=== PATIENT | male | born 1950 | race Caucasian/White ===

== ENCOUNTER → 2017-02-18 | Outpatient (CLI) | payer OTHER ==
--- NOTE | ~2017-02-18 | EXE ---
[facility] [address] [place] [address] STRESS ECHOCARDIOGRAM Name: DICKAMIRAYVROSE CORONADO Room #: REG [facility]#: [id number] Admission: 02/18/17 Attend Phys: Atul Valerio MD Discharge: Date of : 48 Date of Service: 02/18/17 1454 Report #: [id number] THIS REPORT FOR: //name// APPROVED REPORT Study performed: 02/18/2017 11:59:11 EXAM: Comprehensive 2D, Doppler, and color-flow Echocardiogram Patient Location: Out-Patient Status: routine Other Information Study Quality: Adequate Indications Atrial Fibrillation 2D Dimensions RVDd: 37.90 mm LVEF(%): 63.19 (>50%) IVSd: 11.95 (7-11mm) LVOT Diam: 21.65 (18-24mm) LVDd: 48.39 mm PWd: 11.72 (7-11mm) Ascending Ao: 37.34 (22-36mm) LVDs: 31.79 (25-40mm) Aortic Root: 34.13 mm Brandt's LVEF: 63.19 % Volumes Left Atrial Volume (Systole) Single Plane 4CH: 70.31 mL Single Plane 2CH: 81.68 mL LA ESV Index: 36.00 mL/m2 Aortic Valve AoV Peak Kavin.: 1.40 m/s AO Peak Gr.: 7.81 mmHg LVOT Max P.15 mmHg LVOT Max V: 1.13 m/s HILDA Vmax: 2.99 cm2 Mitral Valve E/A Ratio: 1.3 MV Decel. Time: 209.80 ms MV E Max Kavin.: 1.12 m/s MV A Kavin.: 0.83 m/s MV PHT: 60.84 ms IVRT: 69.20 ms [facility] [address] [place] [address] STRESS ECHOCARDIOGRAM Name: AMIRA JENNINGS OSCEOLA MILLS Room #: REG [facility]#: [id number] Admission: 02/18/17 Attend Phys: Atul Valerio MD Discharge: Date of : 48 Date of Service: 02/18/17 1454 Report #: [id number] Pulmonary Valve PV Peak Kavin.: 1.02 m/s PV Peak Gr.: 4.13 mmHg Pulmonary Vein P Vein S: 0.64 m/s P Vein A: 0.33 m/s P Vein D: 0.72 m/s P Vein A Dur.: 92.3 msec P Vein S/D Ratio: 0.89 Tricuspid Valve TR Peak Kavin.: 2.91 m/s RAP Estimate: 5.00 mmHg TR Peak Gr.: 33.87 mmHg PA Pressure: 39.00 mmHg Left Ventricle The left ventricle is normal size. There is normal LV segmental wall motion. Mild concentric left ventricular hypertrophy. Left ventricular systolic function is normal. LVEF is 55-60%. Grade II - pseudonormal filling dynamics. Right Ventricle The right ventricle is normal size. The right ventricular systolic function is normal. Atria Left atrium is mildly dilated. The right atrium size is normal. Aortic Valve The aortic valve is normal in structure. Mild to moderate aortic regurgitation. There is no aortic valvular stenosis. Mitral Valve Mitral valve leaflets are thickened and calcified. Moderate mitral regurgitation. No evidence of mitral valve stenosis. Tricuspid Valve The tricuspid valve is normal in structure. There is mild tricuspid regurgitation. The right atrial pressure is estimated at 5 mmHg. There is mild to moderate pulmonary hypertension with an estimated PAP of 40mmHg. Pulmonic Valve The pulmonary valve is normal in structure. Trace pulmonic regurgitation. [facility] [address] [place] [address] STRESS ECHOCARDIOGRAM Name: DICKAMIRA OSCEOLA MILLS Room #: REG [facility]#: [id number] Admission: 02/18/17 Attend Phys: Atul Valerio MD Discharge: Date of : 48 Date of Service: 02/18/17 1454 Report #: [id number] Great Vessels The aortic root is normal in size. The ascending aorta is normal in size. IVC is normal in size and collapses >50% with inspiration. Pericardium There is no pericardial effusion. <Conclusion> The left ventricle is normal size. Mild concentric left ventricular hypertrophy. Left ventricular systolic function is normal. The right ventricle is normal size. Left atrium is mildly dilated. The right atrium size is normal. Mild to moderate aortic regurgitation. Mild to moderate mitral regurgitation. There is mild tricuspid regurgitation. The right atrial pressure is estimated at 5 mmHg. There is mild to moderate pulmonary hypertension with an estimated PAP of 40mmHg. <ELECTRONICALLY SIGNED> By: Atul Valerio MD 02/18/17 1454 1454 1454 Atul Valerio MD /INF
--- NOTE | ~2017-02-18 | EXE ---
[facility] [employer] [place] [address] STRESS ECHOCARDIOGRAM Name: AMIRA JENNINGS Room #: REG CL [facility]#: [id number] Admission: 02/18/17 Attend Phys: Atul Valerio MD Discharge: Date of : 48 Date of Service: 02/18/17 1458 Report #: [id number] THIS REPORT FOR: //name// APPROVED REPORT Exam: Stress Echocardiogram Indication: Atrial Fibrillation Patient Location: Out-Patient Stress Nurse: Jessica Castro RN Status: routine HR: 66 bpm Medical History Medical History: Atrial Fibrillation Procedure The patient underwent an Exercise Stress Test using the Dario Protocol. Blood pressure, heart rate, and EKG were monitored. An Echocardiogram was performed by management technician in four stages in quad fashion. At peak stress, four selected images were obtained and placed side by side with resting images for comparison. Stress Test Details Stress Test: Exercise stress testing was performed using a Dario protocol. HR Resting HR: 66 bpm Max Heart Rate (APMHR): 153 bpm Max HR Achieved: 137 bpm Target HR (85% APMHR): 130 bpm % of APMHR: 89 Recovery HR: 85 bpm HR response to stress: Slow increase due to medications BP Resting BP: 176/102 mmHg Max BP: 198/88 mmHg Recovery BP: 160/80 mmHg ECG Resting ECG: Sinus Rhythm, nonspecific ST-T abnormalities Stress ECG: Sinus Rhythm, nonspecific ST-T abnormalities ST Change: Non-ischemic Clinical Reason for Termination: Moderate fatigue [facility] [address] [place] [address] STRESS ECHOCARDIOGRAM Name: AMIRA JENNINGS Room #: REG [facility]#: [id number] Admission: 02/18/17 Attend Phys: Atul Valerio MD Discharge: Date of : 48 Date of Service: 02/18/17 1458 Report #: [id number] Stress Symptoms: Dyspnea Exercise duration: 11 min 14 sec Exercise capacity: 13.7 METs Pre-Stress Echo The resting Echocardiogram showed normal left ventricular contractility with an estimated Ejection Fraction of about 55-60%. Post-Stress Echo The stress Echocardiogram showed normal left ventricular contractility with an estimated Ejection Fraction of about 65-70%. Conclusion Clinical Response: Non-ischemic Exercise Capacity: Superior Stress ECG Response: Non-ischemic Stress Echo Images: Non-ischemic No clinical, EKG or echocardiographic evidence for ischemia. Other Information Study Quality: Adequate Technically limited study due to very difficult post pictures due to lung artifact. <Conclusion> No clinical, EKG or echocardiographic evidence for ischemia. <ELECTRONICALLY SIGNED> By: Atul Valerio MD 02/18/17 1458 1458 1458 Atul Valerio MD /INF
== END ==
LOC: CV 08:38
DX: I48.91 Unspecified atrial fibrillation (principal)

== ENCOUNTER → 2018-03-07 | Outpatient (CLI) | payer OTHER ==
--- NOTE | ~2018-03-07 | 2DMMODE ---
[facility] [place] [address] 2 D/M-MODE ECHOCARDIOGRAM Name: DICKAMIRA Room #: REG [facility]#: [id number] Admission: 03/07/18 Attend Phys: Atul Valerio MD Discharge: Date of : 48 Date of Service: 03/07/18 1522 Report #: [id number] THIS REPORT FOR: //name// APPROVED REPORT Study performed: 03/07/2018 13:44:28 EXAM: Comprehensive 2D, Doppler, and color-flow Echocardiogram Patient Location: Out-Patient Status: routine BSA: 2.33 HR: 63 bpm BP: 185/109 mmHg Rhythm: NSR Other Information Study Quality: Adequate Indications Afib 2D Dimensions RVDd: 34.42 mm LVEF(%): 72.76 (>50%) IVSd: 10.95 (7-11mm) LVOT Diam: 20.74 (18-24mm) LVDd: 51.92 mm PWd: 13.17 (7-11mm) Ascending Ao: 29.93 (22-36mm) LVDs: 30.05 (25-40mm) Aortic Root: 31.45 mm Brandt's LVEF: 72.76 % Volumes Left Atrial Volume (Systole) Single Plane 4CH: 63.51 mL Single Plane 2CH: 93.38 mL Aortic Valve AoV Peak Kavin.: 1.38 m/s AO Peak Gr.: 7.57 mmHg LVOT Max P.78 mmHg LVOT Max V: 0.97 m/s HILDA Vmax: 2.39 cm2 Mitral Valve E/A Ratio: 1.1 MV Decel. Time: 274.26 ms MV E Max Kavin.: 0.84 m/s [facility] [address] [place] [address] 2 D/M-MODE ECHOCARDIOGRAM Name: AMIRA JENNINGS Room #: [facility]#: [id number] Admission: 03/07/18 Attend Phys: Atul Valerio MD Discharge: Date of : 48 Date of Service: 03/07/18 1522 Report #: [id number] MV A Kavin.: 0.79 m/s MV PHT: 79.54 ms IVRT: 106.11 ms Pulmonary Valve PV Peak Kavin.: 1.11 m/s PV Peak Gr.: 4.89 mmHg Tricuspid Valve TR Peak Kavin.: 2.74 m/s RAP Estimate: 5.00 mmHg TR Peak Gr.: 30.09 mmHg PA Pressure: 35.00 mmHg Left Ventricle The left ventricle is normal size. There is normal LV segmental wall motion. Borderline concentric left ventricular hypertrophy. Left ventricular systolic function is normal. LVEF is 55-60%. Right Ventricle The right ventricle is normal size. The right ventricular systolic function is normal. Atria Left atrium is mildly dilated. The right atrium size is normal. Aortic Valve The Aortic valve is minimally sclerotic. Mild to moderate aortic regurgitation. There is no aortic valvular stenosis. Mitral Valve Mitral valve leaflets are mildly thickened. Mild to moderate mitral regurgitation. No evidence of mitral valve stenosis. Tricuspid Valve The tricuspid valve is normal in structure. Mild tricuspid regurgitation. Estimated PAP is 35mmHg. Pulmonic Valve The pulmonary valve is normal in structure. Trace pulmonic regurgitation. Great Vessels The aortic root is normal in size. The ascending aorta is normal in size. IVC is normal in size and collapses >50% with inspiration. [facility] [address] [place] [address] 2 D/M-MODE ECHOCARDIOGRAM Name: AMIRA JENNINGS Room #: REG [facility]#: [id number] Admission: 03/07/18 Attend Phys: Atul Valerio MD Discharge: Date of : 48 Date of Service: 03/07/18 152 Report #: [id number] Pericardium There is no pericardial effusion. <Conclusion> The left ventricle is normal size. Left ventricular systolic function is normal. The right ventricle is normal size. Left atrium is mildly dilated. Mild to moderate aortic regurgitation. Mild to moderate mitral regurgitation. Mild tricuspid regurgitation. Estimated PAP is 35mmHg. <ELECTRONICALLY SIGNED> By: Atul Valerio MD 03/07/18 152 21 21 Atul Valerio MD /INF
== END ==
LOC: CV 12:17
DX: I08.3 Combined rheumatic disorders of mitral, aortic and tricuspid valves (principal); I48.91 Unspecified atrial fibrillation

== ENCOUNTER → 2018-03-17 | Outpatient (CLI) | payer OTHER | LOC: CAT 08:30 | DX: Z13.6 Encounter for screening for cardiovascular disorders (principal); E78.00 Pure hypercholesterolemia, unspecified ==

== ENCOUNTER → 2019-03-13 | Outpatient (CLI) | payer OTHER | LOC: NUC 00:38 | DX: I48.91 Unspecified atrial fibrillation (principal); I10 Essential (primary) hypertension; Z79.01 Long term (current) use of anticoagulants; Z79.899 Other long term (current) drug therapy; Z88.8 Allergy status to other drugs, medicaments and biological substances; Z91.018 Allergy to other foods ==

== ENCOUNTER → 2019-04-19 | Outpatient (CLI) | payer OTHER ==
[~2019-04-19] MED LIST: LOPRESSOR50 PO; TAMBOCOR 100 M100 M1 PO; XARELTO20 MG PO
[2019-04-19 07:49] LABS: HEMATOCRIT 44.4 % (42.0-52.0); HEMOGLOBIN 15.3 gm/dL (14.0-18.0); MCHC 34.4 g/dL (28.0-37.0); RBC 4.94 mil/uL (4.50-6.00)
[2019-04-19 08:11] LABS: ALBUMIN 3.6 g/dL (3.4-5.0); CALCIUM 8.9 mg/dL (8.5-10.1); CREATININE 1.1 mg/dL (0.7-1.3); TOTAL BILIRUBIN 0.5 mg/dL (<0.1-1.0); TOTAL PROTEIN 7.5 g/dL (6.4-8.2)
[2019-04-19 08:13] LABS: POTASSIUM 4.6 mmol/L (3.5-5.1)
== END ==
LOC: CAT 07:17
PROVIDERS: Internal Medicine Cardiovascular Disease
DX: I48.91 Unspecified atrial fibrillation (principal); I25.10 Atherosclerotic heart disease of native coronary artery without angina pectoris; M47.814 Spondylosis without myelopathy or radiculopathy, thoracic region

== ENCOUNTER 2019-04-24 06:20 | Observation (INO) | payer OTHER ==
[~2019-04-24] VITALS: Ht 182.9 cm; Wt 117.0 kg
[2019-04-24 06:58] VITALS: BP 144/113
[2019-04-24] MEDS ORDERED: XARELTO20 MG PO (07:04)
[2019-04-24] MEDS ORDERED: LOPRESSOR50 PO (07:04)
[2019-04-24 07:06] LABS: ABSOLUTE NEUTROPHILS 3.2 thou/uL (1.4-8.2); BASOPHILS 0.9 % (0.0-2.0); EOSINOPHILS 4.4 % (0.0-3.0); HEMATOCRIT 44.8 % (42.0-52.0); HEMOGLOBIN 15.4 gm/dL (14.0-18.0); LYMPHOCYTES 34.1 % (24.0-44.0); MCHC 34.4 g/dL (28.0-37.0); MCV 90.3 fL (80.0-100.0); MONOCYTES 8.8 % (1.0-8.0); PLATELET COUNT 180 thou/uL (150-400); POLYS 51.8 % (36.0-66.0); RBC 4.96 mil/uL (4.50-6.00); RDW 12.8 % (10.5-14.5); WBC 6.3 thou/uL (4.0-11.0)
[2019-04-24 07:13] LABS: CALCIUM 9.2 mg/dL (8.5-10.1); CREATININE 1.1 mg/dL (0.7-1.3); POTASSIUM 3.8 mmol/L (3.5-5.1)
[2019-04-24 07:20] LABS: ALBUMIN 3.6 g/dL (3.4-5.0); TOTAL BILIRUBIN 0.6 mg/dL (<0.1-1.0); TOTAL PROTEIN 7.3 g/dL (6.4-8.2)
[2019-04-24 07:29] LABS: APTT 28.4 Seconds (24.5-32.8); INR 1.1; PROTIME 11.1 Seconds (9.3-11.4)
--- NOTE | 2019-04-24 08:07 | EKG ---
[address] [address] ELECTROCARDIOGRAM REPORT Name: AMIRA JENNINGS Room #: 150-4 [facility]#: [id number] Admission: 04/24/19 Attend Phys: Mustapha Rouse MD Discharge: Date of : 48 Report #: [id number] THIS REPORT FOR: //name// [facility] Test Date: 2019-04-24 Test Time: 07:16:34 Pat Name: AMIRA JENNINGS Department: Room: Gender: M Heavy Machinery Operator: Hue COCHRAN : 1950 Requested By: Mustapha Rouse Order Number: [id number] MD: Phong Smith Measurements Intervals [place] Rate: 113 P: [place]: QRS: 23 QRSD: 84 T: 205 QT: 335 QTc: 460 Interpretive Statements Atrial fibrillation Nonspecific ST segment abnormality Compared to ECG 11/23/2006 03:29:41 Sinus rhythm no longer present Electronically Signed On 04-24-2019 8:07:12 CDT by Phong Smith [email or web address] <ELECTRONICALLY SIGNED> By: Phong Smith MD, [facility] 04/24/19 08 5 5 Phong Smith MD, [facility] /EPI
[2019-04-24 12:51] VITALS: BP 138/87
--- NOTE | 2019-04-24 12:55 | NUR ---
RECEIVED FROM HOLDING POST AFIB ABLATION. A X 4, NSR BP STABLE, R GROIN PROCEDURE SITE INTACT WITH DRESSING. NO BRUISING OR HEMATOMA OR BRUIT HEARD PT INSTRUCTED BR X 6 HOURS, UNDERSTOOD. SEE DATA FLOW SHEET FOR FREQUENT VITAL SIGNS AND GROIN CHECKS. STUBBS INTACT, DRAINING QS. WILL CONTINUE TO MONITER AND CARE FOR PT PER PLAN OF CARE
[2019-04-24 14:59] VITALS: BP 138/87
[2019-04-24 16:17] VITALS: BP 138/87; BP 144/87
[2019-04-24 16:18] VITALS: BP 138/87
--- NOTE | 2019-04-24 16:26 | NUR ---
VSS REMAINS NSR , LUNGS CLEAR RA SAT IS 96%, R GROIN EPS SITE WITHOUT HEMATOMA OR BRUIT, BR MAINTAINED. STUBBS WITH CLEAR YELLOW URINE. BR MAINTAINED. WILL CONTINUE TO MONITER AND CARE FOR PT PER PLANOF CARE
[2019-04-24 20:45] VITALS: BP 133/69
--- NOTE | 2019-04-25 04:07 | NUR ---
ASSESSMENT CHARTED. VSS. PT DENIES CP, SOA, DIZZINESS, N/V. R GROIN SITE INTACT NO HEMATOMA NO BRUIT. OFF BEDREST 1999 AD RAY STEADY. VOIDING PER URINAL AFTER DAY SHIFT STUBBS D/C. PT HOPEFUL TO D/C THIS AM. WILL CONTINUE TO MONITOR AND WITH POC.
[2019-04-25 04:45] VITALS: BP 119/70
[2019-04-25 07:23] VITALS: BP 127/72
[2019-04-25] MEDS ORDERED: TAMBOCOR 100 M100 M1 PO (07:58)
--- NOTE | 2019-05-05 14:23 | P ---
[facility] [place] [address] [place] [address] PROCEDURE REPORT Name: AMIRA JENNINGS Room #: 200-I [facility] Jamila AleshaAlesha#: [id number] Admission: 04/24/19 Attend Phys: Mustapha Rouse MD Discharge: 04/25/19 Date of : 48 Report #: [id number] THIS REPORT FOR: //name// CC: Mustapha Jimenezhernandez DATE OF SERVICE: 04/24/2019 PREOPERATIVE DIAGNOSIS: Atrial fibrillation. POSTOPERATIVE DIAGNOSIS: Atrial fibrillation. HISTORY: The patient is a 69-year-old male with history of atrial fibrillation, here for ablation. PROCEDURES PERFORMED: 1. Atrial fibrillation ablation, CPT code 73978. 2. 3D mapping, CPT code 02005. 3. Intracardiac echo, CPT code 76501. 4. Focal ablation with creation of roofline, CPT code 63576. ANESTHESIA: The patient underwent general anesthesia with no anesthesia related complications. DESCRIPTION OF PROCEDURE: The patient underwent informed consent. We discussed the details of the procedure including the risks, which include but not limited to bleeding, vascular damage, cardiac perforation, stroke and AR. He understood these risks and is willing to proceed. The patient was brought to the EP laboratory in a fasting and sedated state, prepped and draped in sterile fashion. I obtained access to the right femoral vein x 3, placing an 8, 7 and 9-Polish short sheath using the modified Seldinger technique. Next, under fluoroscopy, I placed a Decapolar catheter easily in the coronary sinus and an ice catheter in the right atrium, which we used to create a 3D geometry of the left atrium and this was merged with the cardiac CT scan. Next, the patient was systemically heparinized and a transseptal was performed using an SL1 sheath and a [place] needle. This was straightforward and I was able to advance the SL1 to the left atrium and exchanged this for the cryo sheath. Via the cryo sheath, I placed a [employer] Nice Lasso catheter and created a detailed 3D geometry and voltage map of the left atrium. I then started isolating the veins. I performed 2 freezes with the initial balloon, but the balloon deflated likely due to microchip issue. We therefore exchanged to a new cryo balloon and I performed two 4-minute freezes, which did not result in isolation and then I performed a third freeze that was 200 seconds in duration and this third freeze resulted in isolation of the vein within 35 seconds. The third freeze was more of a roof freeze. I then turned my [facility] [address] [place] [address] PROCEDURE REPORT Name: AMIRA JENNINGS [facility] [id number] Admission: 04/24/19 Attend Phys: Mustapha Rouse MD Discharge: 04/25/19 Date of : 48 Report #: [id number] attention to the left inferior pulmonary vein. I performed a 4-minute freeze, which resulted in isolation of the vein in 44 seconds. I performed an additional freeze of 3 minutes duration to create more of a wide circumferential ablation of the veins. I then turned my attention to the right superior pulmonary vein. I performed a 115 second freeze, which resulted in isolation within 40 seconds. I came off due to cold temperatures. I then performed another freeze that was 140 seconds in duration and again came off due to cold temperatures. While isolating the right-sided veins, phrenic nerve pacing was performed and there was never any phrenic nerve compromise. I turned my attention to the right inferior pulmonary vein and this vein isolated within 30 seconds. I performed a single 4-minute freeze. Next, I decided to create a roofline. I performed two 4-minute freezes from the left vein in two 3-minute freezes from the right vein. The patient underwent 200 joule cardioversion with adventist of sinus rhythm and I removed the cryoablation catheter and placed the Lasso catheter back into the left atrium. A detailed 3D voltage map of the left atrium was created, which showed that we had created a wide circumferential ablation of the left atrium as well as posterior roofline with isolation. As such, the procedure was concluded. Using intracardiac ultrasound, I verified there was no pericardial effusion. The patient received systemic protamine and once ACT was within acceptable range, catheters and sheaths were pulled. Hemostasis was obtained. The patient awoke neurologically and hemodynamically intact. No complications and no significant bleeding. CONCLUSIONS: 1. Successful AFib ablation with wide circumferential ablation of the pulmonary veins. 2. Successful creation of a posterior roofline. <ELECTRONICALLY SIGNED> By: Mustapha Rouse MD 05/05/19 1423 1201 [id number] Mustapha Rouse MD /nt
== END 2019-04-25 13:54 | disposition home or self-care (01) ==
LOC: CATH 06:20 → TBA 07:39 → CATH 13:03 → 2N 13:04 → CATH 14:25 → ENTRNSPT 04-25 13:01 → EDTRNSPTSTS 04-25 13:04 → 2N 04-25 13:54
PROVIDERS: ADMIT Internal Medicine Cardiovascular Disease
DX: I48.0 Paroxysmal atrial fibrillation (principal); I10 Essential (primary) hypertension; E78.5 Hyperlipidemia, unspecified; Z91.018 Allergy to other foods; Z88.8 Allergy status to other drugs, medicaments and biological substances; Z79.01 Long term (current) use of anticoagulants; Z79.899 Other long term (current) drug therapy
CPT/HCPCS: 65020; 65040; 70005

== ENCOUNTER → 2020-04-17 | Outpatient (CLI) | payer OTHER | LOC: SJCVC 15:57 | PROVIDERS: ATTEND Internal Medicine Cardiovascular Disease | DX: I48.0 Paroxysmal atrial fibrillation (principal); R00.1 Bradycardia, unspecified; R93.1 Abnormal findings on diagnostic imaging of heart and coronary circulation; I10 Essential (primary) hypertension; E78.00 Pure hypercholesterolemia, unspecified; Z79.899 Other long term (current) drug therapy ==

== ENCOUNTER → 2020-10-24 | Outpatient (CLI) | payer OTHER | LOC: SJCVC 14:00 | PROVIDERS: ATTEND Internal Medicine Cardiovascular Disease | DX: I48.0 Paroxysmal atrial fibrillation (principal); I10 Essential (primary) hypertension; I25.10 Atherosclerotic heart disease of native coronary artery without angina pectoris; E78.00 Pure hypercholesterolemia, unspecified; E78.5 Hyperlipidemia, unspecified; E03.9 Hypothyroidism, unspecified; Z88.5 Allergy status to narcotic agent; Z88.8 Allergy status to other drugs, medicaments and biological substances; Z79.82 Long term (current) use of aspirin; Z79.899 Other long term (current) drug therapy; Z72.89 Other problems related to lifestyle; Z82.49 Family history of ischemic heart disease and other diseases of the circulatory system ==